=== PATIENT | female | born 1990 | race Two or more races ===

== ENCOUNTER → 2024-11-17 | Outpatient (CLI) | payer MEDICAID, SELFPAY ==
--- NOTE | 2024-11-17 15:19 | XR_ITS ---
Examination: PA chest single view TECHNIQUE: Upright PA chest single view Date and time: November 17, 2024 1555 hours INDICATIONS: +PPD FINDINGS: Normal heart size No pneumonia or pulmonary edema Intact osseous structures IMPRESSION: No active disease No radiographic findings of tuberculosis
== END | disposition home or self-care (01) ==
PROVIDERS: Referring Provider Specialist; Visit Provider Specialist
DX: R76.11 Nonspecific reaction to tuberculin skin test without active tuberculosis (principal)
CPT/HCPCS: 71045

== ENCOUNTER 2024-12-16 18:19 | Emergency (ER) | payer MEDICAID, SELFPAY ==
[2024-12-16 18:20] VITALS: BMI 38.2
[2024-12-16 19:27] VITALS: BP 124/79; PULSE 76; RESP 18; TEMP 36.9; O2SAT 97
--- NOTE | 2024-12-16 19:29 | EDRME_ITS ---
Rapid Medical Screening Exam [facility] Arrival date/time: 12/16/24 18:19 34F at approximately 16 weeks and with no significant PMH presents to ED with 2 days of pelvic pain (L>R) as well as some vaginal spotting. Patient denies dysuria. Blood is O+. Chief Complaint: Vaginal Bleeding Vital signs: Vital Signs Temperature 98.5 F 12/16/24 19:27 Pulse Rate 76 12/16/24 19:27 Respiratory Rate 18 12/16/24 19:27 Blood Pressure 124/79 12/16/24 19:27 Pulse Oximetry (%) 97 12/16/24 19:27 Oxygen Delivery Method Room Air 12/16/24 19:27
--- NOTE | 2024-12-16 19:29 | XR_ITS ---
Examination: Complete OB ultrasound greater than 14 weeks Date and time of exam: December 16, 2024, 2010 hours INDICATIONS: Vaginal spotting and pelvic pain beginning 2 days ago Findings: Viable intrauterine single fetus with single amniotic sac presentation breech Cardiac motion 147 bpm Placenta anterior grade 1 Political cord insertion seen Amniotic fluid adequate spine maternal right Cervix 4.0 cm Ovaries obscured by bowel gas. Composite estimated gestational age based on BPD, head circumference, abdominal circumference, femur length is 16 weeks 2 days Estimated weight 135 g. Survey of intracranial anatomy, spinal anatomy, abdominal anatomy, four-chamber heart performed with no abnormalities identified. Impression: Viable intrauterine gestation in breech presentation.
[2024-12-16 20:46] LABS: Basophils # (Auto) 0.0 Thou/mm3 (0.0-0.2); Basophils % (Auto) 0 % (0-2.5); Eosinophils # (Auto) 0.2 Thou/mm3 (0.0-0.5); Eosinophils % (Auto) 2 % (0-10); Hematocrit 34.2 % (36.0-46.0); Hemoglobin 11.9 g/dL (12.0-16.0); Immature Granulocytes Auto 0.05 Thou/mm3 (0.00-0.00); Lymphocytes # (Auto) 2.7 Thou/mm3 (1.0-4.8); Lymphocytes % (Auto) 27 % (10-50); Mean Corpuscular HGB Conc 34.8 g/dl (31.0-37.0); Mean Corpuscular Hemoglobin 29.0 pg (25.0-35.0); Mean Corpuscular Volume 83 fL (80-100); Monocytes # (Auto) 0.7 Thou/mm3 (0.0-0.8); Monocytes % (Auto) 7 % (0-12); Neutrophils # (Auto) 6.3 Thou/mm3 (1.8-7.7); Neutrophils % (Auto) 63 % (37-80); Nucleated Red Blood Cell # 0.00 Thou/mm3 (0.00-0.00); Nucleated Red Blood Cell % 0 /100 WBC (0); Platelet Count 229 Thou/mm3 (140-440); RDW Standard Deviation 39.3 fL (36.4-46.3); Red Blood Count 4.10 Miln/mm3 (4.00-5.20); White Blood Count 10.0 Thou/mm3 (3.6-11.0)
[2024-12-16 21:09] LABS: Collection Type, Urine Clean Catch
[2024-12-16 21:12] LABS: Alanine Aminotransferase 30 U/L (10-49); Albumin, Serum 4.5 gm/dL (3.5-5.0); Albumin/Globulin Ratio 2.1 (1.2-2.2); Alkaline Phosphatase 68 U/L (46-116); Anion Gap 10 (7-16); Aspartate Amino Transferase 21 U/L (0-34); BUN/Creatinine Ratio 16 Ratio (12-20); Bilirubin,Total 0.2 mg/dL (0.3-1.2); Blood Urea Nitrogen 11 mg/dL (9-23); Calcium 9.4 mg/dL (8.3-10.6); Calcium (Corrected) 9.4 mg/dL (8.5-10.1); Carbon Dioxide 25.6 mMol/L (20.0-31.0); Chloride 103 mMol/L (98-107); Creatinine (Component) 0.7 mg/dL (0.6-1.3); Estimated Creatinine Clearance 112.4 mL/min (>60); Globulin 2.1 gm/dL (2.3-3.5); Glucose 95 mg/dL (74-106); Osmolality,Calculated 276 (275-295); Potassium 4.4 mMol/L (3.4-5.1); Sodium 139 mMol/L (136-145); Total Protein 6.6 gm/dL (5.7-8.2); eGFR > 60 See Note
[2024-12-16 21:15] LABS: Bilirubin,Urine Negative (Negative); Blood,Urine Negative (Negative); Clarity,Urine Clear (Clear/Hazy); Color,Urine Yellow (Lt Yel-Yel); Glucose, Urine Negative (Negative); Hyaline Casts,Urine < 1 /hpf (0-1); Ketones,Urine Trace (Negative); Leukocyte Esterase,Urine Negative (Negative); Nitrite,Urine Negative (Negative); PH,Urine 6.0 (5.0-7.0); Protein,Urine Trace (Neg - Trace); RBC,Urine 3 /hpf (0-3); Specific Gravity,Urine 1.033 (1.001-1.035); Squamous Epithelial Cell,Urine 1 /hpf (0-5); Urobilinogen,Urine Negative mg/dL (0.0-1.0); WBC,Urine 1 /hpf (0-5)
[2024-12-16 22:58] VITALS: BP 127/88; PULSE 81; RESP 18; TEMP 37.1; O2SAT 100
--- NOTE | 2024-12-16 23:47 | PD.EDVAGBL ---
ED OB Contraction Preg RMI/HPI General Chief complaint: Vaginal Bleeding Stated complaint: 16WK PREG AND VAG BLEEDING Arrival date/time: 12/16/24 18:19 RME / HPI RME / HPI Narrative: 12/16/24 18:19 34F at approximately 16 weeks and with no significant PMH presents to ED with 2 days of pelvic pain (L>R) as well as some vaginal spotting. Patient denies dysuria. Blood is O+. Dr. Ott?s Main ED Evaluation: 34yo female who is ~16 weeks gestation presents to the ED for a chief complaint of diffuse pelvic pain x 2 days. No radiation or migration. Patient states she was concerned when she started having some vaginal spotting today despite having been on pelvic rest since the beginning of her . Patient denies any fever, chills, nausea, vomiting, diarrhea, dysuria, or any other associated symptoms. NKA. Related Data Home Medications ?Medication ?Instructions ?Recorded ?Confirmed vit no.95-ferrous 1 tab PO QDAY 11/20/18 11/20/18 fumarate 28 mg-folic acid 800 mcg tablet () Allergies Allergy/AdvReac Type Severity Reaction Status Date / Time No Known Allergies Allergy Verified 12/16/24 18:22 Review of Systems Review of Systems Systems Reviewed: All systems reviewed, normal except as documented Past Medical History Surgical History SURGICAL: Positive Section Social History SMOKING STATUS: Never smoker ED Exam Narrative Physical exam: Generally patient is alert and in no obvious distress, heart regular rate and rhythm, lungs clear to auscultation equal bilaterally, musculoskeletal exam showed no costovertebral angle tenderness, abdomen soft obese nondistended very mild suprapubic abdominal tenderness without rebound Course Quality Measures none Orders Category Date Time Status US OB >= 14 weeks Fetus Stat Exams 12/16/24 19:29 Completed Beta HCG,Quantitative Stat Lab 12/16/24 20:26 Completed CBC Stat Lab 12/16/24 20:26 Completed CMP [Comprehensive Metabolic Panel] Stat Lab 12/16/24 20:26 Completed UA [Urinalysis] Stat Lab 12/16/24 21:05 Completed Urine Culture Stat Lab 12/16/24 21:05 Received Vital Signs Vital signs: Vital Signs Temperature 98.5 F 12/16/24 19:27 Pulse Rate 76 12/16/24 19:27 Respiratory Rate 18 12/16/24 19:27 Blood Pressure 124/79 12/16/24 19:27 Pulse Oximetry (%) 97 12/16/24 19:27 Oxygen Delivery Method Room Air 12/16/24 19:27 Vaginal Bleeding MDM Narrative MDM Narrative: Scribe Attestation: 12/16/24 - Kinsey Garcia am scribing for and in the presence of Dr. Ott. Ultrasound showed a live intrauterine fetus in breech presentation with an anterior placenta. Heart rate is 147. Gestational age is 16 weeks and 3 days. Patient's blood type is O+. Urine is not infected. Patient may take Tylenol for pain. Bedrest until bleeding stops for 24 hours. It is only spotting. Patient is to follow-up with her [facility] physician. Return to ER as needed or if condition worsens. Patient data External records reviewed:: [facility] previous records (Per chart review, patient was seen here on 06/15/18 for vaginal bleeding in .) Clinical information provided by:: patient Social determinants that could affect healthcare access:: none Patient has the following chronic illnesses:: none How is presenting disease/condition affected by chronic disease/condition?: no chronic disease Evaluation data The following diagnostics were reviewed and interpreted by me:: lab results and radiology exam(s) Lab and/or radiology exams considered but not ordered:: none Interpretation Summary: Derma Imaging Report Signed Patient: VIVIENNE POSEY. Record#: [id number] Birthdate: 1990 Age/Sex: 34 / F Location: [facility] Attending Dr: Ordering Physician: Roderick Henley PA-C Date of Service: 12/16/24 Procedure(s): US OB >= 14 weeks Fetus Accession Number(s): [id number] cc: Jose Rodriguez MD; Aden Fernandez MD; Roderick Henley PA-C~ Examination: Complete OB ultrasound greater than 14 weeks Date and time of exam: December 16, 20242010 hours INDICATIONS: Vaginal spotting and pelvic pain beginning 2 days ago Findings: Viable intrauterine single fetus with single amniotic sac presentation breech Cardiac motion 147 bpm Placenta anterior grade 1 Political cord insertion seen Amniotic fluid adequate spine maternal right Cervix 4.0 cm Ovaries obscured by bowel gas. Composite estimated gestational age based on BPD, head circumference, abdominal circumference, femur length is 16 weeks 2 days Estimated weight 135 g. Survey of intracranial anatomy, spinal anatomy, abdominal anatomy, four-chamber heart performed with no abnormalities identified. Impression: Viable intrauterine gestation in breech presentation. Dictated By: Aden Fernandez MD Signed By: <Electronically signed by Aden Fernandez MD in [place]> 12/16/242050 Medications / Prescriptions Medications or Prescriptions considered but not ordered:: none Medication administrations:: none Consultations Consultation(s) initiated? (list below): No Diagnosis Vaginal Bleeding Differential Diagnosis: other (See MDM) Most likely diagnosis given after review of the tests above:: see clinical impression below Admission Indicated Admission indicated?: not indicated Admission Request Was there a request for admission?: No Disposition Plan Disposition Plan: Discharge Discharge Attestation Discharge Attestation: The patient and all family members were given an opportunity to ask questions and understood the discharge instructions. Discharge instructions specifically effects, indications for sooner follow up or return to the emergency department, and the expected course of current diagnosis. Patient condition: Stable Discharge Plan Plan Patient Disposition: HOME (Self Care) Prescriptions/Referrals Prescriptions/Med Rec: No Action PNV no.95-ferrous fumarate-FA [] 28 mg iron- 800 mcg Tablet 1 tab PO QDAY Referrals: Jose Rodriguez MD [Primary Care Provider, Family Practice] - In 1 week Problem List Clinical Impression: Vaginal bleeding, Second trimester , Pelvic pain Patient/Caregiver Discharge Instructions Additional Instructions: Tylenol for pain. Bed rest until bleeding stops for 24 hours. Pelvic rest until bleeding stops for 24 hours. Follow-up with your [facility] physician. Print Language: Swazi Stand Alone Forms: [employer] Award Info., Work/School Release, Patient Portal Info Letter
[2024-12-17 00:07] VITALS: BP 133/82; PULSE 72; RESP 20; TEMP 37; O2SAT 100
== END 2024-12-17 00:10 | disposition home or self-care (01) ==
PROVIDERS: Physician Assistant; Emergency Provider Emergency Medicine; PCP Family Medicine
DX: O20.9 Hemorrhage in early pregnancy, unspecified (principal); Z3A.16 16 weeks gestation of pregnancy
CPT/HCPCS: 36415; 76805; 80053; 81001; 84702; 85025; 87077; 87086; 87186; 99282